=== PATIENT | male | born 1950 | race Caucasian/White ===

== ENCOUNTER 2024-11-09 09:28 | Emergency (ER) | payer OTHER, MEDICAID ==
[~2024-11-09] VITALS: Ht 167.6 cm; Wt 77.0 kg
[2024-11-09 09:34] VITALS: TEMP 98.6; O2SAT 98
[2024-11-09 10:40] LABS: BASOPHILS % 0.5 % (0.0-2.0); EOSINOPHILS % 1.9 % (0.0-5.0); HEMATOCRIT. 29.2 % (42.0-52.0); HEMOGLOBIN. 9.8 g/dL (14.0-18.0); LYMPHOCYTES % 11.5 % (20.0-50.0); MEAN CORPUSCULAR HEMOGLOBIN 30.3 pg (28.0-32.0); MEAN CORPUSCULAR HGB CONC 33.7 g/dL (31.0-37.0); MEAN CORPUSCULAR VOLUME 89.8 fL (80.0-94.0); MEAN PLATELET VOLUME 7.6 fl (7.4-10.4); MONOCYTES % 7.8 % (2.0-8.0); NEUTROPHILS % 78.3 % (40.0-76.0); PLATELET 405 x1000/uL (130-400); RED BLOOD CELL COUNT 3.25 mill/uL (4.7-6.1); RED CELL DISTRIBUTION WIDTH 15.8 % (11.6-14.6); WHITE BLOOD COUNT 9.7 x1000/uL (4.5-11.0)
[2024-11-09 10:51] LABS: CARBON DIOXIDE 23 mEq/L (21-32); CHLORIDE 104 mEq/L (98-107); POTASSIUM 4.3 mEq/L (3.5-5.1); SODIUM 137 mEq/L (136-145)
[2024-11-09 10:52] LABS: CALCIUM 8.5 mg/dL (8.7-10.4)
[2024-11-09 10:57] LABS: CREATININE 0.9 mg/dL (0.6-1.3); GLUCOSE 151 mg/dL (70-105); TROPONIN I HIGH SENSITIVITY 10 ng/L (3.0-53); UREA NITROGEN BLOOD 15 mg/dL (9-23)
[2024-11-09] MEDS ORDERED: LEVOFLOXACIN 750MG PREMIX 150 ML IV ONE (11:30)
[2024-11-09] MEDS: SODIUM CHLORIDE 0.9% 500 ML IV ONE (12:30)
[2024-11-09] MEDS: LEVOFLOXACIN 250MG PREMIX 50ML IV SCH (12:43)
[2024-11-09 14:13] VITALS: BP 102/54; PULSE 66; RESP 15; O2SAT 98
== END 2024-11-09 15:13 | disposition short-term general hospital (02) ==
LOC: ER 09:33
DX: J18.9 Pneumonia, unspecified organism (principal); E11.9 Type 2 diabetes mellitus without complications
CPT/HCPCS: 99285; 96365; 71045; 80048; 83880; 85025; 84484; 36415; 93005; J1956; J7040